=== PATIENT | male | born 1985 | race Two or more races ===

== ENCOUNTER 2018-12-13 08:57 | Emergency (ER) | payer OTHER ==
[~2018-12-13] VITALS: Ht 165.1 cm; Wt 99.8 kg
[2018-12-13 09:24] VITALS: BP 144/98
[2018-12-13] MEDS ORDERED: BENZ100C PO (09:31)
[2018-12-13] MEDS ORDERED: IBUP-1007 PO (09:31)
--- NOTE | 2018-12-13 09:31 | PHYS DOC ---
Past Medical History Past Medical History: No Pertinent History (LESLIE CARPIO MANGLE FEEDER) Past Surgical History: No Surgical History (LESLIE CARPIO MANGLE FEEDER) Alcohol Use: None Drug Use: None ([facility] Adult General Chief Complaint Chief Complaint: COUGH HPI HPI Patient is a 33 year old male who presents with cough and headache 3 days. Denies fever. States he's been taking Tylenol but the headache continues with cough. Patient rates his pain a 6 out of 10 and states is aching. (LESLIE CARPIO MANGLE FEEDER) Review of Systems Review of Systems Constitutional: Denies fever or chills [] Eyes: Denies change in visual acuity, redness, or eye pain [] HENT: Denies nasal congestion or sore throat [] Respiratory: cough or denies shortness of breath [] Cardiovascular: No additional information not addressed in HPI [] GI: Denies abdominal pain, nausea, vomiting, bloody stools or diarrhea [] : Denies dysuria or hematuria [] Musculoskeletal: Denies back pain or joint pain [] Integument: Denies rash or skin lesions [] Neurologic: headache, denies focal weakness or sensory changes [] All other systems were reviewed and found to be within normal limits, except as documented in this note. (LESLIE CARPIO MANGLE FEEDER) Allergies Allergies Allergies Coded Allergies Type Severity Reaction Last Updated Verified No Known Drug Allergies 09/03/14 No (KARIN PEREZ MD) Physical Exam Physical Exam Constitutional: Well developed, well nourished, no acute distress, non-toxic appearance. [] HENT: Normocephalic, atraumatic, bilateral external ears normal, oropharynx moist, no oral exudates, nose normal. Throat reddened only. [] Eyes: PERRLA, EOMI, conjunctiva normal, no discharge. [] Neck: Normal range of motion, no tenderness, supple, no stridor. [] Cardiovascular:Heart rate regular rhythm, no murmur [] Lungs & Thorax: Bilateral breath sounds clear to auscultation [] Abdomen: Bowel sounds normal, soft, no tenderness, no masses, no pulsatile masses. [] Skin: Warm, dry, no erythema, no rash. [] Back: No tenderness, no CVA tenderness. [] Extremities: No tenderness, no cyanosis, no clubbing, ROM intact, no edema. [] Neurologic: Alert and oriented X 3, normal motor function, normal sensory function, no focal deficits noted. [] Psychologic: Affect normal, judgement normal, mood normal. [] (LESLIE CARPIO APRN) Current Patient Data Vital Signs Vital Signs Date Time Temp Pulse Resp B/P (MAP) Pulse Ox O2 Delivery O2 Flow Rate FiO2 12/13/18 09:24 99.0 63 16 144/98 (113) 98 99.0 (KARIN PEREZ MD) Lab Values Laboratory Tests Test 12/13/18 09:24 Influenza Type A Antigen Positive (NEGATIVE) Influenza Type B Antigen Negative (NEGATIVE) (KARIN PEREZ MD) Lab Values Laboratory Tests Test 12/13/18 09:24 Influenza Type A Antigen Positive (NEGATIVE) Influenza Type B Antigen Negative (NEGATIVE) (LESLIE CARPIO APRN) EKG EKG [] (LESLIE CARPIO APRN) Radiology/Procedures Radiology/Procedures [] (LESLIE CARPIO APRN) Course & Med Decision Making Course & Med Decision Making Patient is a 33 year old male who presents with cough and headache 3 days. Denies fever. States he's been taking Tylenol but the headache continues with cough. Patient rates his pain a 6 out of 10 and states is aching. Alert and oriented. Skin pink warm and dry. Mucus membranes are moist. Patient denies abdominal pain, chest pain, focal weaknesses, numbness or tingling, shortness of air, nausea, vomiting, fever, body aches, runny nose, nasal congestion, dizziness, visual changes, ear pain, throat pain. Speaks in full clear sentences. Ambulatory with steady gait. Lungs are clear to auscultation in all lobes. Abdomen is soft and nontender. Throat is reddened but not swollen there are no exudates. Bilateral tympanic membranes pearly white. Vital signs within normal limits. Flu A positive. Patient to follow up with primary care or come back if symptoms worsen. (LESLIE CARPIO APRN) Course & Med Decision Making Staff Physician Addendum: I was working in the ER during the course of this patient's visit. I was available for consultation as needed, but I was not directly involved in the care of this patient. (KARIN PEREZ MD) Dragon Disclaimer Dragon Disclaimer This electronic medical record was generated, in whole or in part, using a voice recognition dictation system. (LESLIE CARPIO APRN) Departure Departure Impression: Primary Impression: Cough Additional Impressions: Headache Influenza A Disposition: 01 HOME, SELF-CARE Condition: STABLE Referrals: NO PCP (PCP) Patient Instructions: Cough, Adult, General Headache Without Cause, Influenza A (H1N1) Additional Instructions: Follow up with primary care or return to the ED if symptoms worsen. Take medications as prescribed. Drink plenty of fluids. Scripts Oseltamivir Phosphate (TAMIFLU) 75 Mg Capsule 1 CAP PO BID for 5 Days, #10 CAP Prov: LESLIE CARPIO APRN 12/13/18 Ibuprofen (IBUPROFEN) 600 Mg Tablet 600 MG PO PRN Q6HRS PRN for INFLAMMATION, #20 TAB Prov: LESLIE CARPIO APRN 12/13/18 Benzonatate (TESSALON PERLE) 100 Mg Capsule 1 CAP PO TID PRN for COUGH, #30 CAP Prov: LESLIE CARPIO APRN 12/13/18 Problem Qualifiers Additional Impressions: Headache Headache type: unspecified Headache chronicity pattern: unspecified pattern Intractability: not intractable Qualified Codes: R51 - Headache LESLIE CARPIO APRN Dec 13, 2018 09:31 KARIN PEREZ MD Dec 14, 2018 06:37
[2018-12-13 09:57] LABS: INFLUENZA A PATIENT POSITIVE (NEGATIVE); INFLUENZA B PATIENT NEGATIVE (NEGATIVE)
[2018-12-13] MEDS ORDERED: OSEL75CA PO (09:59)
== END 2018-12-13 10:22 | disposition home or self-care (01) ==
LOC: ER 08:57
DX: J10.1 Influenza due to other identified influenza virus with other respiratory manifestations (principal)
CPT/HCPCS: 87804; 99283

== ENCOUNTER 2021-03-16 16:22 | Emergency (ER) | payer OTHER ==
[~2021-03-16] VITALS: Ht 165.1 cm; Wt 109.0 kg
[~2021-03-16 16:22] MED LIST: BENZ100C PO; IBUP-1007 PO; OSEL75CA PO
[2021-03-16 17:29] VITALS: BP 108/74
[2021-03-16] MEDS ORDERED: DIPH,PERTUSS(ACELL),TET VAC/PF 0.5 ML SYRINGE. VAX IM ONE (18:15)
[2021-03-16] MEDS ORDERED: LIDOCAINE WITH 8.4% SOD BICARB 3 ML DISP.SYRIN. INJ ONE (18:15)
--- NOTE | 2021-03-16 20:01 | PHYS DOC ---
Past Medical History Past Medical History: No Pertinent History ([facility] [employer]) Past Surgical History: Other Additional Past Surgical Histo: rt knee, RT ELBOW, RT SHOULDER ([facility]) Smoking Status: Never Smoker Alcohol Use: None Drug Use: None (RHONANABOR HODGE APRN) General Adult EDM: Chief Complaint: LACERATION/AVULSION HPI: HPI: Patient is a 35 year old male who presents to the ED today with left pinky finger laceration that occurred a couple minutes prior to coming to the ED, he accidentally cut himself with a razor blade, he is right-handed ([facility] [employer]) Review of Systems: Review of Systems: Constitutional: Denies fever or chills. [] Musculoskeletal: Denies back pain or joint pain. [] Integument: Reports left pinky finger laceration Neurologic: Denies headache, focal weakness or sensory changes. [] Psychiatric: Denies depression or anxiety. [] ([facility] [employer]) Heart Score: C/O Chest Pain: N/A Risk Factors: Risk Factors: DM, Current or recent (<one month) smoker, HTN, HLP, family history of CAD, obesity. Risk Scores: Score 0 - 3: 2.5% MACE over next 6 weeks - Discharge Home Score 4 - 6: 20.3% MACE over next 6 weeks - Admit for Clinical Observation Score 7 - 10: 72.7% MACE over next 6 weeks - Early Invasive Strategies ([facility] [employer]) Current Medications: Current Medications Medications (Trade) Dose Ordered Sig/Isaura Start Time Stop Time Status Last Admin Dose Admin Diphtheria/ Tetanus/Acell Pertussis (ADACEL TDap SYRINGE) 0.5 ml ONCE ONCE 03/16/21 18:15 03/16/21 18:16 DC 03/16/21 18:43 0.5 ML Lidocaine HCl (Buffered Lidocaine 1%) 3 ml 1X ONCE 03/16/21 18:15 03/16/21 18:16 DC 03/16/21 18:42 3 ML ([facility] [employer]) Allergies: Allergies: Allergies Coded Allergies Type Severity Reaction Last Updated Verified No Known Drug Allergies 09/03/14 No ([facility] [employer]) Physical Exam: PE: Constitutional: Well developed, well nourished, no acute distress, non-toxic appearance. [] Skin: volar aspect of the left pinky finger MIP joint with a laceration approximately 2 cm long, there is no obvious tendon involvement, patient able to flex and extend the finger with no difficulties. Adequate ulnar sensation to the left pinky finger Back: No tenderness, no CVA tenderness. [] Extremities: No tenderness, no cyanosis, no clubbing, ROM intact, no edema. [] Neurologic: Alert and oriented X 3, normal motor function, normal sensory function, no focal deficits noted. [] Psychologic: Affect normal, judgement normal, mood normal. [] (NABOR MEJIA APRN) Current Patient Data: Vital Signs: Vital Signs Date Time Temp Pulse Resp B/P (MAP) Pulse Ox O2 Delivery O2 Flow Rate FiO2 03/16/21 17:29 99.6 77 16 108/74 (85) 97 Room Air 99.6 (NABOR MEJIA APRN) EKG: EKG: [] (NABOR MEJIA APRN) Radiology/Procedures: Radiology/Procedures: [] (NABOR MEJIA APRN) Course & Med Decision Making: Course & Med Decision Making Pertinent Labs and Imaging studies reviewed. (See chart for details) This is a 35-year-old male patient with left pinky finger laceration, laceration could have used stitches but patient refused. Tetanus was updated. Laceration was closed with Dermabond by me and Steri-Strips applied to the area. Wound care instructions and return precautions provided (NABOR MEJIA APRN) Course & Med Decision Making The chart was reviewed. Agree with the plan of care. (BIJU CABRERA DO) Kesha Disclaimer: Kesha Disclaimer: This electronic medical record was generated, in whole or in part, using a voice recognition dictation system. ([employer]) Departure Departure Impression: Primary Impression: Finger laceration Qualified Codes: S61.217A - Laceration without foreign body of left little finger without damage to nail, initial encounter Disposition: HOME / SELF CARE / HOMELESS Condition: STABLE Referrals: NO PCP (PCP) follow up with your doctor in one week Patient Instructions: Fingertip Laceration Additional Instructions: You have a laceration to the left pinky finger that was closed with Dermabond. The Steri-Strips over the laceration site will fall off on their own. Keep the area clean and dry. Monitor the area for any signs of infection including but not limited to increased redness, warmth, and return to the ED. Once the Steri- Strips fall off you can apply Neosporin to the area twice a day for 1 week NABOR MEJIA APRN March 16, 2021 20:00 BIJU CABRERA I DO March 18, 2021 19:08
== END 2021-03-16 20:05 | disposition home or self-care (01) ==
LOC: ER 16:22
DX: S61.217A Laceration without foreign body of left little finger without damage to nail, initial encounter (principal); W27.8XXA Contact with other nonpowered hand tool, initial encounter; Y93.89 Activity, other specified; Y92.89 Other specified places as the place of occurrence of the external cause; Y99.8 Other external cause status
CPT/HCPCS: 12001; 90471; 90715; 99283; J3490